=== PATIENT | male | born 1975 | race Two or more races ===

== ENCOUNTER 2016-11-26 00:37 | Emergency (ER) | payer SELFPAY ==
[~2016-11-26] VITALS: Ht 165.1 cm; Wt 59.0 kg
[2016-11-26 00:41] VITALS: BP 144/80
[2016-11-26] MEDS ORDERED: MULTIVITAMINS1 EAC2 ORAL (00:44)
[2016-11-26] MEDS ORDERED: LACTULOSE20 GM/301 ORAL (00:44)
[2016-11-26] MEDS ORDERED: FOLIC ACID1 MG ORAL (00:44)
[2016-11-26] MEDS ORDERED: PROTONIX40 MG ORAL (00:44)
[2016-11-26] MEDS ORDERED: ABILIFY15 MG ORAL (00:44)
[2016-11-26] MEDS ORDERED: PREDNISOLO15 MG/5 M1 ORAL (00:44)
[2016-11-26] MEDS ORDERED: VITAMIN B-1100 MG ORAL (00:44)
--- NOTE | 2016-11-26 01:16 | Emergency Room Report ---
History of Present Illness General Chief Complaint: Pain Source: Patient, Medical Record Present Illness HPI Is a 41-year-old male who is homeless with a history of alcohol abuse. He was at [facility] for almost 3 weeks secondary to trauma in the past encephalopathy. He was arranged to have transport to [facility]. When he got there according to nursing staff there increasing it out and they called 911. He also complaining of right shoulder pain. No new trauma. He claimed that he did not tell the people at [facility] this. Denies any new trauma. No nausea no vomiting. Denies any other complaint. Allergies: Coded Allergies: No Known Allergies (Unverified , 11/26/16) Patient History Past Medical History: see triage record, old chart reviewed Past Surgical History: other Pertinent Family History: none Social History: Reports: alcohol use Immunizations: other Reviewed Nursing Documentation: PMH: Agreed, PSxH: Agreed Nursing Documentation-PM Past Medical History: No History, Except For Hx Cardiac Problems: No - Acute Hepatic Encepalopathy, Alcoholic cirrhosis of liver Review of Systems Eye: Denies: eye pain, blurred vision ENT: Denies: ear pain, nose congestion, throat swelling Respiratory: Denies: cough, shortness of breath Cardiovascular: Denies: chest pain, palpitations Gastrointestinal: Denies: abdominal pain, diarrhea, nausea, vomiting Musculoskeletal: Reports: joint pain, Denies: back pain Skin: Denies: rash Neurological: Denies: headache, numbness Endocrine: Denies: increased thirst, increased urine Hematologic/Lymphatic: Denies: easy bruising All Other Systems: negative except mentioned in HPI Physical Exam Vital Signs Date Time Temp Pulse Resp B/P (MAP) Pulse Ox O2 Delivery O2 Flow Rate FiO2 11/26/16 00:31 98.1 88 16 144/80 99 Room Air vitals normal Sp02 EP Interpretation: reviewed, normal General Appearance: well appearing, no apparent distress, alert Head: normocephalic, atraumatic Eyes: bilateral eye PERRL, bilateral eye EOMI, bilateral eye scleral icterus ENT: hearing grossly normal, normal pharynx Neck: full range of motion, supple, no meningismus Respiratory: chest non-tender, lungs clear, normal breath sounds Cardiovascular #1: regular rate, rhythm, no murmur Gastrointestinal: normal bowel sounds, non tender, no mass, no organomegaly, no bruit, non-distended Musculoskeletal: back normal, gait/station normal, normal range of motion Psychiatric: mood/affect normal Skin: warm/dry Medical Decision Making Diagnostic Impression: Primary Impression: AC separation Qualified Codes: S43.101A - Unspecified dislocation of right acromioclavicular joint, initial encounter Additional Impression: Shoulder pain, right Qualified Codes: M25.511 - Pain in right shoulder ER Course Patient with right shoulder pain. No new trauma. It mostly have a mild a.c. separation. No dislocation or fracture. We'll discharge back to halfway. Call [facility]. I spoke with the nursing hand cigar making supervisor. Phone number is [phone]. They will accept the patient back. Last Vital Signs Date Time Temp Pulse Resp B/P (MAP) Pulse Ox O2 Delivery O2 Flow Rate FiO2 11/26/16 00:41 98.1 88 16 144/80 99 Room Air Status: improved Disposition: XFER SNF Condition: Stable Additional Instructions: followup with your Dr. in 7 days. Return if worse. ZAKI DUNHAM M.D. Nov 26, 2016 01:16
[2016-11-26 01:27] VITALS: BP 149/79
--- NOTE | 2016-11-26 12:27 | Diagnostic Imaging Report ---
Indication: TRAUMA Technique: 3 views of the right shoulder Comparison: none Findings: No acute fractures. No dislocations. Joint spaces are preserved Impression:Negative
== END 2016-11-26 01:27 ==
LOC: EDBD 00:37 → EMR 01:23
DX: S43.101A Unspecified dislocation of right acromioclavicular joint, initial encounter (principal); X58.XXXA Exposure to other specified factors, initial encounter; Y92.129 Unspecified place in nursing home as the place of occurrence of the external cause
CPT/HCPCS: 99283